=== PATIENT | male | born 1980 | race Caucasian/White ===

== ENCOUNTER → 2016-09-06 | Outpatient (CLI) | payer BC ==
[~2016-09-06] MED LIST: AMOX1TAB12 PO; PRED20TA PO
[2016-09-06 10:17] VITALS: BP 149/87
--- NOTE | 2016-09-06 10:17 | Urgent Care T Sheet Gen (E) ---
Intake General Temperature (Fahrenheit): 97.1 Pulse: 78 Blood Pressure Systolic: 149 Blood Pressure Diastolic: 87 (took an OTC old med) Respirations: 20 SPO2: 98 History of Present Illness Initial Comments Patient presents with illness for 10 days. Thought he was getting better however symptoms worsened a few days ago. Notes nasal congestion, PND, JOHNSON and intermittent cough. No fever. Headache is behind the eyes. Been taking Evita and OTC cold meds. Also been using a netti pot. Respiratory Constitutional Symptoms: No syptoms reported EENTM: Nose Congestion Respiratory: Cough Cardiovascular: No symptoms reported Gastrointestinal/Abdominal: No symptoms reported Neurological: Headache All Other Systems Reviewed Remaining Systems: All other systems reviewed with negative findings Physical Exam Physical Exam General Appearance: WD/WN No apparent distress Eyes, Ears, Nose, Throat Ex: TMs normal (air fluid bubbles) Pharyngeal erythema (cobblestone appearance) Other (red, swollen nasal turbinates; tender over maxillary sinuses) Neck Exam: SuppleNo Lymphadenopathy Respiratory Exam: Lungs clear Normal breath sounds Cardiovascular Exam: Regular rate, rhythm Departure Urgent Care Impression Impression: Primary Impression: Sinusitis Qualified Code: J01.00 - Acute maxillary sinusitis, unspecified Departure Disposition: HOME OR SELF-CARE Condition: Stable Referrals: ZITA FAITH MD (PCP) Additional Instructions: I have started the patient on Augmentin and Prednisone for treatment DC cold meds as they are increasing his BP May continue with allergy meds and netti pot as needed Rest. Fluids Return if no better Patient understands DC instructions. All questions were answered. Scripts Prednisone 20 Mg [id number] Mg PO DAILY #6 TAB Prov:LUCIEN VERGARA 09/06/16 Amoxicillin/Clavulanate Potassium (Augmentin 875mg/125mg)1 Each Tablet1 Tab PO BID #14 TAB Ref 0 Prov:LUCIEN VERGARA 09/06/16 End of report . LUCIEN VERGARA Sep 06, 2016 10:17
== END ==
LOC: MHUC 10:02
PROVIDERS: ATTEND Physician Assistant
DX: J01.00 Acute maxillary sinusitis, unspecified (principal)
CPT/HCPCS: 99213